=== PATIENT | female | born 1960 | race Caucasian/White ===

== ENCOUNTER 2017-08-19 12:14 | Emergency (ER) | payer OTHER ==
[~2017-08-19] VITALS: Ht 172.7 cm; Wt 58.4 kg
[~2017-08-19 12:14] MED LIST: CIPRO500 MG PO; FLAGYL500 MG PO; FLEXERIL10 MG PO; GABAPENTIN300 MG PO; HYDROCODON-ACE1 EAC5 PO; LISINOPRIL20 MG PO; MELOXICAM15 MG PO; METOPROLOL SUCC25 MG PO; METOPROLOL TART25 MG PO; PENTASA500 MG PO; PERCOCET 5/31 TABLET PO; PREDNISONE20 MG PO; TRAMADOL HCL50 MG PO; ULTRAM50 MG PO; VOLTAREN75 MG PO; ZOFRAN ODT4 MG PO; ZOFRAN4 MG PO
[2017-08-19 13:53] LABS: HEMOGLOBIN 11.8 G/DL (11.9-15.5); MCH 29.2 PG (29.0-34.0); MCHC 34.7 G/DL (30.0-36.0); MCV 84.2 FL (83-99); PLATELET COUNT 412 K/uL (156-360); RBC DIS.WIDTH-CV 12.6 % (11.8-14.6); RBC DIS.WIDTH-SD 38.9 % (39-53); RED BLOOD COUNT 4.04 M/uL (3.80-5.20)
[2017-08-19 14:05] LABS: CHLORIDE 98 mEq/L (99-109); POTASSIUM 3.6 mEq/L (3.7-5.4); SODIUM 134 mEq/L (136-147)
[2017-08-19 14:06] LABS: GLUCOSE 127 mg/dL (70-99)
[2017-08-19 14:10] LABS: CREATININE 0.9 mg/dL (0.6-1.3); GFR ESTIMATE (CALCULATED) > 59 mL/min/
[2017-08-19 14:11] LABS: UREA NITROGEN (BUN) 17 mg/dL (9-23)
[2017-08-19] MEDS ORDERED: PHENERGAN-CODE120 ML PO (14:27)
[2017-08-19] MEDS ORDERED: PREDNISONE50 MG PO (14:27)
[2017-08-19] MEDS ORDERED: ZITHROMAX Z-PA250 MG PO (14:27)
[2017-08-19 15:09] VITALS: BP 100/61
== END 2017-08-19 15:13 | disposition home or self-care (01) ==
LOC: EME 12:14
DX: J18.9 Pneumonia, unspecified organism (principal); J44.0 Chronic obstructive pulmonary disease with (acute) lower respiratory infection; Z87.891 Personal history of nicotine dependence; Z87.01 Personal history of pneumonia (recurrent); I10 Essential (primary) hypertension; K50.90 Crohn's disease, unspecified, without complications; F41.9 Anxiety disorder, unspecified
CPT/HCPCS: 71046; 80048; 85027; 87040; 94640; 99281; 99285